=== PATIENT | female | born 1970 | race Caucasian/White ===

== ENCOUNTER → 2016-11-01 | Outpatient (CLI) | payer BC ==
--- NOTE | 2016-11-02 09:09 | RADIOLOGY REPORT (SQ) ---
EXAM DESCRIPTION: MRI HEAD COMBO; MRA HEAD WITHOUT COMPLETED DATE/TIME: 11/01/2016 5:32 pm REASON FOR STUDY: SEIZURE,ANEURYSM R56.9 UNSPECIFIED CONVULSIONS I67.1 CEREBRAL ANEURYSM, NONRUPTU RED COMPARISON: None. TECHNIQUE: Multiplanar imaging includes noncontrasted T1, T2, FLAIR, diffusion with ADC map and post gadolinium contrast T1 sequences. Images stored on PACS. 3D [id number] MRA of the [place] was performed, images reviewed from source data and max imum intensity projected images. CONTRAST TYPE AND DOSE: 10 mL Multihance. RENAL FUNCTION: None required. The patient is less than 50 years old. LIMITATIONS: None. FINDINGS: ANATOMY: No brain parenchymal developmental anomalies. Normal vascular flow voids. [place] fossa normal. CSF SPACES: Normal in size and contour. No hemorrhage. CEREBRUM: Sulci and gyri normal in size and contour. Normal white matter signal on FLAIR imaging. No evidence of hemorrhage, mass, or extraaxial fluid collection. No abnormal enhancement post contrast. POSTERIOR FOSSA: No signal alteration. No hemorrhage. No edema, masses, or mass effect. Internal liv tory canals, cerebellopontine angles, mastoids normal. No enhancing lesions. No abnormal enhancement post contrast. DIFFUSION IMAGING: Negative for acute or subacute infarction. ORBITS: No masses. Globes normal. PARANASAL SINUSES: No fluid levels. Mucosa normal. [place] MRA: No [place] stenosis, vascular malformation, or aneurysm. There is a right sided origin posterior cerebral artery, with a benign infundibulum, an anatomi c variant. IMPRESSION: NORMAL MRI OF THE BRAIN WITHOUT AND WITH INTRAVENOUS GADOLINIUM CONTRAST. EVIDENCE OF ACUTE STROKE: NO. COMMENT: Essentially normal MRI exam of the brain without and with contrast Essentially normal [place] MRA. Patient has a origin right posterior cerebral artery with a benign infundibulum. TECHNICAL DOCUMENTATION: JOB ID: [id number] [employer]- All Rights Reserved
--- NOTE | 2016-11-02 09:09 | RADIOLOGY REPORT (SQ) ---
EXAM DESCRIPTION: MRI HEAD COMBO; MRA HEAD WITHOUT COMPLETED DATE/TIME: 11/01/2016 5:32 pm REASON FOR STUDY: SEIZURE,ANEURYSM R56.9 UNSPECIFIED CONVULSIONS I67.1 CEREBRAL ANEURYSM, NONRUPTU RED COMPARISON: None. TECHNIQUE: Multiplanar imaging includes noncontrasted T1, T2, FLAIR, diffusion with ADC map and post gadolinium contrast T1 sequences. Images stored on PACS. 3D [id number] MRA of the [place] was performed, images reviewed from source data and max imum intensity projected images. CONTRAST TYPE AND DOSE: 10 mL Multihance. RENAL FUNCTION: None required. The patient is less than 50 years old. LIMITATIONS: None. FINDINGS: ANATOMY: No brain parenchymal developmental anomalies. Normal vascular flow voids. [place] fossa normal. CSF SPACES: Normal in size and contour. No hemorrhage. CEREBRUM: Sulci and gyri normal in size and contour. Normal white matter signal on FLAIR imaging. No evidence of hemorrhage, mass, or extraaxial fluid collection. No abnormal enhancement post contrast. POSTERIOR FOSSA: No signal alteration. No hemorrhage. No edema, masses, or mass effect. Internal liv tory canals, cerebellopontine angles, mastoids normal. No enhancing lesions. No abnormal enhancement post contrast. DIFFUSION IMAGING: Negative for acute or subacute infarction. ORBITS: No masses. Globes normal. PARANASAL SINUSES: No fluid levels. Mucosa normal. [place] MRA: No [place] stenosis, vascular malformation, or aneurysm. There is a right sided origin posterior cerebral artery, with a benign infundibulum, an anatomi c variant. IMPRESSION: NORMAL MRI OF THE BRAIN WITHOUT AND WITH INTRAVENOUS GADOLINIUM CONTRAST. EVIDENCE OF ACUTE STROKE: NO. COMMENT: Essentially normal MRI exam of the brain without and with contrast Essentially normal [place] MRA. Patient has a origin right posterior cerebral artery with a benign infundibulum. TECHNICAL DOCUMENTATION: JOB ID: [id number] [employer]- All Rights Reserved
== END ==
LOC: RAD 15:49
PROVIDERS: ATTEND Specialist
DX: R56.9 Unspecified convulsions (principal); I67.1 Cerebral aneurysm, nonruptured
CPT/HCPCS: 70553; 70544; A9577